=== PATIENT | male | born 2000 | race Caucasian/White ===

== ENCOUNTER 2023-05-10 18:42 | Inpatient (IN) | payer OTHER, SELFPAY ==
[2023-05-10] VITALS (16 sets, daily range): BP systolic 142–159; BP diastolic 87–100; BMI 28.5
[2023-05-10 16:08] LABS: % Basophils 0.4 % (0-2); % Eosinophils 0.4 % (0-6); % Immature Granulocytes 0.7 % (0-0.5); % Lymphocytes 12.7 % (20.5-51.1); % Monocytes 4.8 % (1.7-9.3); Absolute Basophils 0.1 10^3/uL (0-0.2); Absolute Eosinophils 0.1 10^3/uL (0-0.7); Absolute Immature Granulocytes 0.1 10^3/uL (0-0.05); Absolute Lymphocytes 1.8 10^3/uL (1.2-3.4); Absolute Monocytes 0.7 10^3/uL (0.1-0.6); Absolute Neutrophils 11.2 10^3/uL (1.4-6.5); Hematocrit 25.7 % (39.0-52.0); Mean Corpuscular Hgb 29.2 pg (27.0-31.0); Mean Corpuscular Volume 83.4 fL (80.0-94.0); Mean Platelet Volume 10.3 fL (7.4-10.4); Nucleated Red Blood Cells % 0 % (-); Platelet Count 324 10^3/uL (130-400); Red Blood Cell Count 3.08 10^6/uL (4.70-6.10); Red Cell Dist. Width 12.7 % (11.5-14.5); White Blood Cell Count 13.8 10^3/uL (4.8-10.8)
[2023-05-10 16:24] LABS: ALT (SGPT) 51 U/L (0-50); AST (SGOT) 27 U/L (17-59); Albumin 3.8 g/dl (3.5-5.0); Alkaline Phosphatase 70 U/L (38-126); Blood Urea Nitrogen 28 mg/dl (9-20); Carbon Dioxide 28 mmol/L (22-30); Chloride 103 mmol/L (98-107); Estimated Creatinine Clearance > 125 ml/min; Glucose 126 mg/dl (70-99); Sodium 137 mmol/L (135-145); Total Bilirubin 0.3 mg/dl (0.2-1.3); Total Protein 6.5 g/dl (6.3-8.2); eGFR > 60.00
[2023-05-10] MEDS: PROTONIX IV 80 MG IV (17:03)
[2023-05-10] MEDS: PROTONIX 100 IV (17:04)
--- NOTE | 2023-05-10 17:59 | ED.GENMED ---
History of Present Illness
General
Chief Complaint: Fainting/Passed Out
Source: patient and family (Mother and father)
Time Seen by Provider: 05/10/23 16:44
Travel History
Have you had any contact with someone who has COVID-19?: No
Do you have any symptoms of coronavirus? Fever > 100 degrees, chills, cough, shortness of breath, sore throat, loss of taste or smell, muscle aches, or headache?: No
History of Present Illness
History of Present Illness:
22-year-old male presents to the emergency room after suffering a syncopal episode at work. Patient's been feeling dizzy and noted his heart rate has been fast for the past couple days. He has also been experiencing significant low back pain for
the past several weeks. He does endorse using NSAIDs frequently for this pain. He has been evaluated orthopedics and has had an MRI performed but he does not have the results. Back pain is worse with movement. He denies any numbness or tingling
in his lower extremities. Patient has observed black stools recently. He describes as black diarrhea. Patient does not have upper abdominal pain. He denies alcohol use.
Phy Exam
Physical Exam
Physical Exam:
General: Awake, Alert, Oriented X3. Appears ill, pale
Vitals: Tachycardic
Head: Atraumatic
Eyes: Pupils equal, EOMI
Throat: Airway intact, no exudates
Neck: Trachea midline
Lungs: Clear and equal b/l
Heart: Regular rate, no murmurs
Abd: Soft, Nontender, No pulsatile mass
Rectal: Black stool heme positive
Neuro: Nonfocal
Skin: Warm, dry, no rash
Extremities: pulses equal b/l, no edema
Course
Orders/Labs/Results
Orders:
Orders
05/10/23 15:52
Electrocardiogram (*1) Urgent
Reason for Study: Chest Pain
Cardiac Monitoring- Treatment ONCE
EKG- Treatment ONCE
IV Insert/Care/Rem.- Treatment PRN
O2 Therapy [RESP] Urgent
Titrate/Wean O2 to maintain O2 sat greater than (%): 90
Special Instructions: Maintain sats >/=90%
Pulse Ox/spot Check [RESP] Urgent
Quantity: 1
Special Instructions: ON ROOM AIR
05/10/23 15:56
Complete Blood Count/With Diff Urgent
Comprehensive Metabolic Panel Urgent
05/10/23 16:55
IV Insert/Care/Rem.- Treatment PRN
Pantoprazole 80 mg/100 ml Nss [Protonix] 80 mg in 100 ml IV NOW
Pantoprazole [Protonix IV] 80 mg IV NOW STA
05/10/23 17:21
Type+Screen Urgent
05/10/23 18:20
Admit/Transfer Patient As Directed
Co-Sign Provider:
Level of Care: Inpatient admission
Assign to:: ICU
Physician / Group: sanchez ramos
Diagnosis: Symptomatic anemia, GI bleed, tachycardia
Reason for Hospitalization: Symptomatic anemia, GI bleed, tachycardia
Expected length of stay greater than two midnights?: Yes
ELOS- Estimated Length of Stay in days: 3
I certify the patient meets the requirements for IP care: Yes
Code Status As Directed
Resuscitation Status: Full Code
05/10/23 18:21
Hemoglobin Urgent
05/10/23 18:26
GASTROINTESTINAL CONSULT Routine
Consulting Provider: Veronica Elias
Was physician already notified: Yes
Reason for consult: gi bleed
05/10/23 18:39
Moving Worker Consult Routine
Consulting Provider: Facundo Jacinto
Was physician already notified: Yes
05/10/23 18:48
0.9% Sodium Chloride 1000 ml [Nss] 1,000 ml IV 150 mls/hr
05/13/23 11:00
DC Protocol for Telemetry ONCE
Abnormal Lab Results
05/10/23 05/10/23
15:56 18:21
WBC 13.8 H 10^3/uL
(4.8-10.8)
RBC 3.08 L 10^6/uL
(4.70-6.10)
Hgb 9.0 L g/dL 8.7 L g/dL
(13.0-18.0) (13.0-18.0)
Hct 25.7 L %
(39.0-52.0)
Abs Immat Gran (auto) 0.1 H 10^3/uL
(0-0.05)
Absolute Neuts (auto) 11.2 H 10^3/uL
(1.4-6.5)
Absolute Monos (auto) 0.7 H 10^3/uL
(0.1-0.6)
Immature Gran % 0.7 H %
(0-0.5)
Neutrophils % 81.0 H %
(42.2-75.2)
Lymphocytes % 12.7 L %
(20.5-51.1)
BUN 28 H mg/dl
(9-20)
Glucose 126 H mg/dl
(70-99)
ALT 51 H U/L
(0-50)
05/10/23 18:21
05/10/23 15:56
Vital Signs
Initial and Last Documented VS:
Initial Vital Signs
BP
148/94
05/10/23 15:43
Last Documented Vital Signs
Temp Pulse Resp BP Pulse Ox
98.4 F 122 15 150/89 98
05/10/23 15:54 05/10/23 19:15 05/10/23 19:15 05/10/23 19:00 05/10/23 19:15
MDM/Problems Addressed
Differential Diagnosis Includes:
vasovagal syncope, upper gi bleed, lower gi bleed, dehydration
MDM/Problems Addressed:
Patient presents with syncope. He is noted to look quite pale initial evaluation. He is tachycardic but normotensive. He has heme positive black stool. Labs show the patient is anemic with a hemoglobin of 9.0. Consent for blood transfusion
obtained. GI consultation obtained, Dr. Elias came immediately to the emergency room to evaluate the patient. [facility]. Patient likely suffering from a upper GI bleed secondary to NSAID use.
*Pulse Oximetry
Patient hypoxic: no
*Engineering Aid Interpretation
Rate: tachycardiac
Interpretation: abnormal
Heart Rate: 110
Rhythm: sinus tachycardia
*Critical Care Note
Total Time (30-74mins, 75-104mins- exclusive of procedures): 35 min
comment:
Critical care statement: A total of 40 minutes of critical care time was provided for this patient. This includes management of unstable vital signs, evaluation of the patient at bedside, reviewing the patient's pertinent medical records, discussion
with consultants, review of old EKGs and review of pertinent medical records. This time with separate from time utilized to perform the aforementioned documented procedures
ED Attending Note
-
Portions of this chart may have been created with voice recognition software.� Occasional wrong word or��sound alike� substitutions may have occurred due to the inherent limitations of voice recognition software.
Discharge Plan
Departure
Patient Disposition: Admit
Date of Disposition: 05/10/23
Time of Disposition: 18:00
Admit to: ICU
Presentation/result/management discussed w/ accepting MD/DO: Hospitalist
Condition: Serious
Discharge Problem:
Acute upper GI bleed, Syncope
Interventions
Interventions:
*Risk Screen - Suicide Last Done: 05/10/23 16:10
*General Assessment Last Done: 05/10/23 16:09
*Neglect/Abuse Screening Last Done: 05/10/23 16:10
ED- Fall Risk Assessment Last Done: 05/10/23 16:11
*ED COVID-19 Vaccine History Last Done: 05/10/23 16:09
ED- Cardiac Assessment Last Done: 05/10/23 16:11
ED- Neurological Assessment Last Done: 05/10/23 16:11
[2023-05-10 18:30] LABS: Hemoglobin 8.7 g/dL (13.0-18.0)
--- NOTE | 2023-05-10 18:31 | HPS.HSE ---
Addendum entered and electronically signed by Kiet Guevara MD 05/10/23 18:46:
I saw and examined the patient.
The DIALYSIS RN's note was reviewed and I agree with the note.
Comment:
22-year-old male past medical history of chronic back pain who has been taking increasing amount of NSAIDs at home. Patient stating of no nausea vomiting. States of black diarrhea. States he is feeling severe lightheaded and dizzy upon standing
up. Denies any blood in the urine. Denies abdominal pain. Patient denies any chest pain or palpitation or shortness of breath. Patient presented with syncopal event. Patient presented by EMS.
General no acute distress, pale,
Cardiac S1-S2 regular rate rhythm tachycardic sinus
Lungs clear to auscultation
Abdomen positive also soft nontender nondistended
Extremities no edema
Neuro awake alert and oriented, moving all extremities
Impression
Syncope secondary to upper GI bleed
Acute blood loss anemia likely secondary upper GI bleed
Sinus tachycardia secondary to above
Mood disorder
Chronic back pain
Impaired glucose tolerance
Mild AST elevation
Leukocytosis likely reactive
Plan
N.p.o.
Start PPI bolus with IV infusion
Start patient on normal saline 150 cc/h
Gastroenterology has been consulted
Patient will be undergoing emergent endoscopy
Admit to ICU
Radio Host consulted
Repeat H&H later today for transfuse for hemoglobin less than 8
Check anemia panel
Post procedure diet per GI
Hold home medication regimen for now
If hypotensive start pressors
2 IV lines at all times
Trend CBC for now.
Discussed with mother at bedside
Discussed with ER team
I spent a total of 78 minutes with the patient or on the floor. More than 50% of this time involved counseling and coordination of care.
Original Note:
Family Physician
-
Family Physician: Vielka Marin
Chief Complaint
-
Black stools x 2 days
History of Present Illness
22-year-old male from home with his mother Kellie at bedside , the patient states he has been taking approximately ten 200 mg of Motrin daily for the past couple months he also took Excedrin 1 tablet yesterday for headache and additional 1 tablet
Excedrin today for headache. He reports black diarrhea x 2 days with lightheadedness upon standing and nausea. he reports he has been taking Motrin due to back pain for several months with no reported injury he did had outpatient MRI but does not
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 He denies current headache, chest pain, palpitations, shortness breath, abdominal pain, vomiting, urinary symptoms. He has past medical history of depression.
Medical History
Past Medical History
Past Medical History: Reports Other (Chronic back pain, depression)
Past Surgical History: Reports Other ([place] teeth extraction under anesthesia)
Social History
Tobacco: Non-smoker
Alcohol: None
Drug: None
Personal: Single
Living: With Family (Parent)
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
Family History
Family History: Other (Father age 57 NM mother history hypertension)
Allergies / Home Medications
Allergies reflects when Allergies were last updated in [facility].
Home Medications with original date entered in [facility]
Allergy/Medication List:
Allergies
Allergy/AdvReac Type Severity Reaction Status Date / Time
No Known Allergies Allergy Unverified 05/10/23 15:50
Home Medications
acetylcysteine 600 mg capsule (NAC) 600 mg PO QPM 05/10/23
aspirin-acetaminophen (buffered) 250 mg-250 mg tablet 1 tab PO BIDPRN PRN mild pain 05/10/23
cholecalciferol (vitamin D3) 50 mcg (2,000 unit) tablet (Vitamin D3) 1,000 mcg PO QPM 05/10/23
cyclobenzaprine 5 mg tablet 5 mg PO BIDPRN PRN back spasms 05/10/23
escitalopram oxalate 10 mg tablet (Lexapro) 10 mg PO DAILY 05/10/23
therapeutic multivitamin 1 tab PO QPM 05/10/23
Review of Systems
-
History Source: Patient and Family (Mother Kellie at bedside)
A 12 point ROS was completed and negative except as noted: Yes
Constitutional: Reports Fatigue; Denies Fever or Chills
EENT: Denies Sore Throat or Runny Nose
Respiratory: Denies Cough or Trouble Breathing
Cardiac: Denies Chest Pain, Diaphoresis, Palpitations or Syncope
Abdomen/GI: Reports Nausea and Black Stools; Denies Abdominal Pain, Vomiting, Diarrhea, Constipated or Bloody Stools
: Denies Dysuria, Frequency, Flank Pain, Incontinence, Difficulty Voiding, Urgency or Bleeding
Musculoskeletal: Denies Joint Pain or Edema
Skin: Denies Itching or Rash
Neurological: Reports Dizzy (With standing) and Headache; Denies Weakness
Endocrine: Reports No Symptoms
Hematologic/Lymphatic: Reports No Symptoms
Psych: Reports Calm
Physical Exam
Vital Signs
Vital Signs
Temp Pulse Resp BP Pulse Ox
98.4 F 126 12 154/94 99
05/10/23 15:54 05/10/23 17:00 05/10/23 17:00 05/10/23 17:00 05/10/23 17:00
Physical Exam
General: Conversant; No Pain or Fever
HEENT: NormoCephalic, Anicteric, Moist mucous membranes, No Ptosis and Other (Pale conjunctiva)
Respiratory: Clear; No Wheezes, Rales or Rhonchi
Cardiac: S1/S2 and Tachycardia (Sinus heart rate 130s on monitor); No Murmur, Rub, Gallop or Peripheral Edema
Breast: Deferred by me
GI: Soft, Non Tender, Non Distended, Normal Bowel Sounds and No Hepatosplenomegaly
Rectal: Deferred by Provider
Genito-urinary: Deferred by me
Musculoskeletal: No Clubbing, No Cyanosis and No Edema
Skin: Warm and Dry; No Rash or Jaundice
Neuro: No Motor Deficits, Nonfocal/grossly intact, Cranial Nerves Intact and No Sensory Deficits; No Slurred Speech, Facial Droop or Tremors
Psych: Calm
Laboratory Results
-
05/10/23 18:21
Laboratory Results
Total Bilirubin 0.3 mg/dl (0.2-1.3) 05/10/23 15:56
AST 27 U/L (17-59) 05/10/23 15:56
ALT 51 U/L (0-50) H 05/10/23 15:56
Alkaline Phosphatase 70 U/L (38-126) 05/10/23 15:56
Data Reviewed
-
Lab Data: Labs Reviewed by me
Impression/Plan
-
Impression/plan:
Admit to ICU
#Acute GI bleed/symptomatic
HR 130s, Hgb 9, 154/94
-Type and screen
-NPO patient for OR this evening for endoscopy
-IV PPI drip
-IV NSS 150 cc/h
-Check hemoglobin at 2200 if less than 8 will transfuse 1 unit PRBC
#Depression
-Hold current Lexapro as patient is n.p.o.
#Chronic back pain
-Patient to follow-up outpatient for MRI results
DVT prophylaxis
SCDs
Full code
--- NOTE | 2023-05-10 18:33 | CON.GI ---
Consultation
-
Date/Time Consultation Requested: 05/10/23 at 5:30 pm
Date/Time Consultation Performed: 05/10/23 sy 6pm
Requesting Provider: [facility]
Performing Provider: Curt
Reason for Consultation: GI bleed
Medical History
Chief Complaint / HPI
Chief Complaint: syncope
History of Present Illness:
This patient is a 22-year-old man who has a history of severe back pain. He states that over the last several months he has been taking frequent NSAIDs. He also has anxiety and was taking Lexapro. States that he had seen an orthopedic surgeon and
had had an MRI but does not have the results. He did note that while at work he started feeling dizzy and had syncope. He has noted black stool since then. He did come to the ER and was tachycardic. He does not have abdominal pain and he does
not have nausea or vomiting. He does not have a history of ulcers or any GI disorders.
Past Medical History
Past Medical History: Other (anxiety, back pain)
Past Surgical History: None
Social History
Tobacco: Non-Smoker
Alcohol: None
Family History
Family History: Reviewed & Not Pertinent
Allergies / Home Medications
Allergy/AdvReac Type Severity Reaction Status Date / Time
No Known Allergies Allergy Unverified 05/10/23 15:50
Medication Instructions Recorded
acetylcysteine 600 mg capsule (NAC) 600 mg PO QPM 05/10/23
aspirin-acetaminophen (buffered) 1 tab PO BIDPRN PRN mild pain 05/10/23
250 mg-250 mg tablet
cholecalciferol (vitamin D3) 50 1,000 mcg PO QPM 05/10/23
mcg (2,000 unit) tablet (Vitamin
D3)
cyclobenzaprine 5 mg tablet 5 mg PO BIDPRN PRN back spasms 05/10/23
escitalopram oxalate 10 mg tablet 10 mg PO DAILY 05/10/23
(Lexapro)
therapeutic multivitamin 1 tab PO QPM 05/10/23
Review of Systems
-
All other systems: A 12 pt ROS was Negative except as stated above in HPI
Vital Signs
Temp Pulse Resp BP Pulse Ox
98.4 F 126 12 154/94 99
05/10/23 15:54 05/10/23 17:00 05/10/23 17:00 05/10/23 17:00 05/10/23 17:00
Physical Exam
Exam
General: Other (weak but in no distress)
HEENT: Anicteric
Cardiac: S1/S2
GI: Soft and Non Tender
Skin: Warm
Neuro: Awake
Psych: Calm
Results
WBC 13.8 10^3/uL (4.8-10.8) H 05/10/23 15:56
Hgb 8.7 g/dL (13.0-18.0) L 05/10/23 18:21
Hct 25.7 % (39.0-52.0) L 05/10/23 15:56
MCV 83.4 fL (80.0-94.0) 05/10/23 15:56
Plt Count 324 10^3/uL (130-400) 05/10/23 15:56
Absolute Neuts (auto) 11.2 10^3/uL (1.4-6.5) H 05/10/23 15:56
Sodium 137 mmol/L (135-145) 05/10/23 15:56
Potassium 5.0 mmol/L (3.5-5.1) 05/10/23 15:56
Chloride 103 mmol/L (98-107) 05/10/23 15:56
Carbon Dioxide 28 mmol/L (22-30) 05/10/23 15:56
BUN 28 mg/dl (9-20) H 05/10/23 15:56
Creatinine 0.7 mg/dL (0.7-1.3) 03/01/24 15:56
Calcium 9.0 mg/dl (8.4-10.2) 05/10/23 15:56
Total Bilirubin 0.3 mg/dl (0.2-1.3) 05/10/23 15:56
AST 27 U/L (17-59) 05/10/23 15:56
ALT 51 U/L (0-50) H 05/10/23 15:56
Alkaline Phosphatase 70 U/L (38-126) 05/10/23 15:56
Assessment / Plan
-
This patient is a 22-year-old man with a history of frequent NSAID use due to back pain. He did have syncope of melena and is having an acute upper GI bleed. He is tachycardic and his hemoglobin is currently 9 and he has a reactive leukocytosis.
For now would do the following:
NPO
IV PPI ggt
follow hgb
urgent egd
-
-
Thank you for consultation and allowing me to participate in the patient's care. Please call the infrastructure solutions architect GI physician during the after hours with any questions or concerns.
[2023-05-10] MEDS: NSS 1000 IV (19:08)
[2023-05-10 22:32] LABS: Hematocrit 23.8 % (39.0-52.0); Hemoglobin 8.3 g/dL (13.0-18.0)
[2023-05-10 22:43] LABS: PT 14.2 Sec (11.4-14.6)
[2023-05-10 22:44] LABS: APTT 24.3 Sec (23.4-35.0)
--- NOTE | 2023-05-10 23:30 | PTCARENOTE ---
Pt arrived to ICU room 3371 from PACU at around 2120, transported in bed by DOMESTIC MAID and SHIPYARD SUPERVISOR. Pt is s/p clip x2 and epi injection of duodenal ulcer. ST 110s on monitor, BP has been in 140s-150s, hemodynamically stable at this time. SpO2 98-100% on
2LNC, O2 removed at around 2300 and pt has been 97%. Pt cleaned up from being incontinent of dark black diarrhea (did not look like a recent BM). NS and Protonix drips infusing per order. Repeat H&H done at 2220, HgB 8.3. Physical assessment
completed, see nursing shift assessment flowsheet for full details. Oriented to room and call segal, personal belongings within reach. Admission database completed.
[2023-05-11] VITALS (34 sets, daily range): BP systolic 124–169; BP diastolic 66–101; BMI 27.7
[2023-05-11] MEDS: NSS 1000 IV ×2 (01:48→08:33)
[2023-05-11] MEDS: PROTONIX 100 IV ×3 (02:00→22:42)
[2023-05-11 04:32] LABS: % Basophils 0.2 % (0-2); % Immature Granulocytes 0.6 % (0-0.5); % Lymphocytes 9.6 % (20.5-51.1); % Monocytes 1.1 % (1.7-9.3); % Neutrophils 88.5 % (42.2-75.2); Absolute Immature Granulocytes 0.1 10^3/uL (0-0.05); Absolute Lymphocytes 1.4 10^3/uL (1.2-3.4); Absolute Monocytes 0.2 10^3/uL (0.1-0.6); Absolute Neutrophils 12.8 10^3/uL (1.4-6.5); Hematocrit 23.9 % (39.0-52.0); Hemoglobin 8.1 g/dL (13.0-18.0); Mean Corp Hgb Conc. 33.9 g/dL (33.0-37.0); Mean Corpuscular Hgb 28.5 pg (27.0-31.0); Mean Corpuscular Volume 84.2 fL (80.0-94.0); Mean Platelet Volume 10.5 fL (7.4-10.4); Nucleated Red Blood Cells % 0 % (-); Platelet Count 307 10^3/uL (130-400); Red Blood Cell Count 2.84 10^6/uL (4.70-6.10); Red Cell Dist. Width 12.6 % (11.5-14.5); White Blood Cell Count 14.5 10^3/uL (4.8-10.8)
[2023-05-11] MEDS: TYLENOL 650 MG PO ×2 (04:35→14:32)
[2023-05-11 04:57] LABS: Blood Urea Nitrogen 18 mg/dl (9-20); Carbon Dioxide 24 mmol/L (22-30); Chloride 105 mmol/L (98-107); Estimated Creatinine Clearance > 125 ml/min; Glucose 129 mg/dl (70-99); Potassium 4.3 mmol/L (3.5-5.1); Sodium 135 mmol/L (135-145); eGFR > 60.00
--- NOTE | 2023-05-11 05:08 | PTCARENOTE ---
Assessment unchanged. SR 90s on monitor. BP has been elevated this shift, sometimes up to 160s systolic, discussed with Alexa SEWELL and he does not want to treat unless it is >180 or pt symptomatic. When drawing AM labs, pt c/o slight headache
2/10, BP at that time was 155 systolic. Alexa SEWELL made aware, Tylenol ordered and administered, does not want to treat BP at this time. No BM overnight. No c/o pain or nausea.
--- NOTE | 2023-05-11 07:45 | PTCARENOTE ---
Assumed care of patient. Pt rec'd A&Ox3. Pleasant. Denies any pain. S1 S2 reg w/ ST on monitor. +PP. No edema. On R/A...sats 99%. Lungs clear. Abdomen round...+BS. Voids in urinal. Skin pale in color. Knee hi SCD's on. 20P LAC w/ IVF's
and protonix gtt infusing. 18P RAC capped. VS documented. Call segal within reach. NPO for now. Will continue to monitor closely.
--- NOTE | 2023-05-11 08:12 | CON.INTV ---
Consultation
Consultation Request
Date/Time Consultation Requested: 05/10/2023 - 183
Date/Time Consultation Performed: 05/11/2023 - 801
Requesting Provider: Dr. Guevara
Performing Provider: Dr. Jacinto
Reason for Consultation: GI bleed
Medical History
-
Chief Complaint: Black stools x2 days
History of Present Illness:
22-year-old male with past med history of chronic back pain and depression who presents from work after syncopal episode with loss of consciousness. Unclear if there was any head trauma. When EMS arrived patient's heart rate was 160. IV fluids
were started with normal saline and 500 cc were given which improved heart rate to 110s. In the ER patient was afebrile to 98.4 �F, heart rate 137, patient tachypneic to 34 breaths/min, BP 153/87 and SpO2 98% on room air. Patient endorsed
lightheadedness for the last 2 days. Labs showed BUN of 28, glucose 126, ALT 51, Hb 8.7, platelets 324 and WBC 13.8. Patient endorsed taking Motrin and Excedrin daily for several months. He reports having black stools for the last 2 days with
nausea. Due to concern for GI bleed, PPI was started and gastroenterology was consulted. Emergent endoscopy was performed on the evening of 05/10/2023 showing a cratered, deep, large duodenal ulcer with a visible, pulsating vessel. Area was
injected with epinephrine and 2 hemostatic labs were placed with hemostasis achieved. Patient transferred to the ICU for closer monitoring and critical care services consulted for additional management/recommendations.
When I saw the patient he was in bed, mother and father at bedside. Patient says he feels better. Denies abdominal pain, back pain, fevers or chills. He is tachycardic with heart rate in the 120s, BP 145/81 and saturating 100% on room air. He
has not had a bowel movement since yesterday.
PMHx: Chronic back pain, depression
PSHx: [place] teeth extraction
Past Medical History
Past Medical History: Other (above as per HPI)
Past Surgical History: Other (above as per HPI)
Social History
Tobacco: Non-smoker
Alcohol: None
Drug: None
Personal: Single
Living: With Family
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
Family History
Family History: CAD (Father: at age 57 from [place]) and Hypertension (Mother)
Allergies / Home Medications
Allergies
Allergy/AdvReac Type Severity Reaction Status Date / Time
No Known Allergies Allergy Unverified 05/10/23 15:50
Home Medications
Medication Instructions Recorded Confirmed Last Taken Type
acetylcysteine 600 mg capsule (NAC) 600 mg PO QPM 05/10/23 05/10/23 Unknown History
aspirin-acetaminophen (buffered) 1 tab PO BIDPRN PRN mild pain 05/10/23 05/10/23 05/10/23 History
250 mg-250 mg tablet
cholecalciferol (vitamin D3) 50 1,000 mcg PO QPM 05/10/23 05/10/23 Unknown History
mcg (2,000 unit) tablet (Vitamin
D3)
cyclobenzaprine 5 mg tablet 5 mg PO BIDPRN PRN back spasms 05/10/23 05/10/23 Unknown History
escitalopram oxalate 10 mg tablet 10 mg PO DAILY 05/10/23 05/10/23 05/10/23 History
(Lexapro)
therapeutic multivitamin 1 tab PO QPM 05/10/23 05/10/23 Unknown History
Review of Systems
-
History Source: Patient
All other systems: Negative unless noted (12 point ROS performed and is negative unless mentioned above.)
Vitals / Labs / Diagnostic Testing
Vital Signs
Temp Pulse Resp BP Pulse Ox
98.8 F 99 17 138/67 96
05/11/23 07:40 05/11/23 06:00 05/11/23 06:00 05/11/23 06:00 05/11/23 06:00
Lab Data
05/11/23 09:55
05/11/23 04:18
Laboratory Results
05/10/23
22:20
PT 14.2
INR 1.10
APTT 24.3
Diagnostic Testing:
Physical Exam
-
HEENT: Normocephalic, Anicteric and Moist Mucous Membranes
Cardiovascular: S1/S2, Peripheral Edema (negative) and Other (tachycardic)
Respiratory: Clear, Wheeze (negative), Rales (negative), Rhonchi (negative) and Non-Labored Respirations
GI: Soft, Non Distended and Non Tender
Neurology: AO x 3
Skin: Warm and Dry
General: Comfortable and Chills (negative)
Assessment
-
Assessment: 22-year-old male with past med history of chronic back pain and depression who presents from work after syncopal episode with loss of consciousness. Unclear if there was any head trauma. When EMS arrived patient's heart rate was 160.
IV fluids were started with normal saline and 500 cc were given which improved heart rate to 110s. In the ER patient was afebrile to 98.4 �F, heart rate 137, patient tachypneic to 34 breaths/min, BP 153/87 and SpO2 98% on room air. Patient
endorsed lightheadedness for the last 2 days. Labs showed BUN of 28, glucose 126, ALT 51, Hb 8.7, platelets 324 and WBC 13.8. Patient endorsed taking Motrin and Excedrin daily for several months. He reports having black stools for the last 2 days
with nausea. Due to concern for GI bleed, PPI was started and gastroenterology was consulted. Emergent endoscopy was performed on the evening of 05/10/2023 showing a cratered, deep, large duodenal ulcer with a visible, pulsating vessel. Area was
injected with epinephrine and 2 hemostatic labs were placed with hemostasis achieved. Patient transferred to the ICU for closer monitoring and critical care services consulted for additional management/recommendations.
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
Impression:
#Acute blood loss anemia due to upper GI bleed
#Duodenal ulcer with visible vessel s/p injection with epinephrine + clips x2 (EGD on 05/10/2023)
#Symptomatic anemia with syncopal episode due to above
#Tachycardia due to above
#Chronic back pain - he had an MRI L/T spine done at [facility], but has not been reviewed yet by his Orthopedic physician
Plan:
- Large-bore IV X2
- Gastroenterology on board, recs appreciated; s/p EGD on 05/10/2023 with hemostasis achieved of duodenal ulcer s/p epinephrine injection and clipping X2
- Monitor Hb with serial CBC and transfuse if actively bleeding or if Hb<7 g/dL; also keep plt>50k and INR<1.8
- 2 units are being ordered due to continued tachycardia --> if HR improves with rate <110 after first unit, then I would not give the 2nd unit as it is not necessary unless Hb not at goal as above or he is bleeding
- PPI gtt
- Maintain MAP>65
- Maintain SpO2 >90-94%
- Replete K>3.5, Mg>1.8
- DVT ppx
Critical care statement: A total of 40 minutes of critical care time was provided for this patient today. This includes management of unstable vital signs, evaluation of the patient at bedside, reviewing the patient's pertinent medical records
including radiographs, microbiology, laboratory evaluations, and discussion with primary team, consultants, pharmacy, nutrition, physical therapy, case management, charge nurse, critical care nursing, and respiratory therapy.
Data:
CXR 05-10-2023:
Thin linear densities within the left lower lung, compatible with scarring and/or linear atelectasis.
[2023-05-11 08:59] LABS: Iron 153 ug/dl (49-181)
[2023-05-11 09:08] LABS: Percent Saturation 37 % (20-50); Total Iron Binding Capacity 405 ug/dl (261-462)
[2023-05-11 10:09] LABS: Hematocrit 21.7 % (39.0-52.0); Hemoglobin 7.6 g/dL (13.0-18.0)
--- NOTE | 2023-05-11 10:27 | W.PN.GI.CBS2 ---
Today's Communication / Plan
-
transfuse 2 units prbcs
Assessment / Plan
-
22 y/o man with massive UGIB from DU with visible vessel. No more bleeding but never received any blood despite major hgb drop and symptomatic headaches and tachycardia.
1. transfuse 2u pRBCs
2. continue IV PPI ggt
3. continue NPO and if remains stable clear liquids for dinner
4. avoid nsaids
5. follow hgb
Subjective
Subjective
Date of Service: May 11, 2023
Pt s/p UGIB with large artery bleed from DU. He has not had any more bleeding but has been tachy with headaches. Of note he never received blood.
Objective
Data Reviewed
Laboratory Data:
Laboratory Results
05/11/23 09:55
05/11/23 04:18
Laboratory Results
PT 14.2 Sec (11.4-14.6) 05/10/23 22:20
INR 1.10 05/10/23 22:20
APTT 24.3 Sec (23.4-35.0) 05/10/23 22:20
Total Bilirubin 0.3 mg/dl (0.2-1.3) 05/10/23 15:56
AST 27 U/L (17-59) 05/10/23 15:56
ALT 51 U/L (0-50) H 05/10/23 15:56
Alkaline Phosphatase 70 U/L (38-126) 05/10/23 15:56
Vital Signs and I&O:
Vital Signs
Temp Pulse Resp BP Pulse Ox
98.8 F 99 17 138/67 96
05/11/23 07:40 05/11/23 06:00 05/11/23 06:00 05/11/23 06:00 05/11/23 06:00
I&O
05/10/23 05/11/23 05/12/23
06:59 06:59 06:59
Intake Total 1546 / 1546
Output Total 1150 / 1150 600 / 600
Balance 396 / 396 -600 / -600
Physical Exam
Physical Exam
HEENT: Anicteric
Cardiology: Other (tachcardic)
GI: Soft, Non Distended and Non Tender
Neuro: Non Focal
--- NOTE | 2023-05-11 11:40 | W.PN.HOSP.TC ---
Today's Communication/Plan
-
IVF
2U PRBC
Trend h/h post transfusion
IV PPI
Assessment / Plan
Assessment / Plan
#Syncope secondary to upper GI bleed
#Acute blood loss anemia likely secondary upper GI bleed
#Sinus tachycardia secondary to above
Start PPI bolus with IV infusion
Start patient on normal saline 150 cc/h
Gastroenterology has been consulted
s/p Emergent EGD with DU with visible vessel s/p epi injection s/p clips.
Hgb 7.6. 2U PRBC ordered.
Check anemia panel
Diet per GI
Hold home medication regimen for now
If hypotensive start pressors
2 IV lines at all times
Trend CBC for now.
Poll Clerk consulted
Mood disorder
restart lexapro once diet restarted
Chronic back pain
Tylenol prn
No NSAIDs
Impaired glucose tolerance
Check A1C
Mild AST elevation
monitor
Leukocytosis likely reactive
trend for now
afebrile
no cough or fever.
DVT ppx-ambulate
Anticipated Discharge: > 48 hours
Subjective/Interval History
-
Date of Service: May 11, 2023
Denies abdominal or lightheadedness \\
Denies any diarrhea.
States a mild headache
Currently without back pain
Denies any numbing tingling in upper or lower extremities
Denies urinary or fecal incontinence
Objective Data
-
Labs:
Laboratory Results
05/11/23 05/11/23 05/11/23
04:18 04:18 04:18
WBC 14.5 H
Hgb Cancelled 8.1 L
Hct Cancelled 23.9 L
Plt Count 307
Sodium 135
Potassium 4.3
Chloride 105
Carbon Dioxide 24
BUN 18
Creatinine 0.6 L
Glucose 129 H
Calcium 9.0
05/11/23
09:55
WBC
Hgb 7.6 L
Hct 21.7 L
Plt Count
Sodium
Potassium
Chloride
Carbon Dioxide
BUN
Creatinine
Glucose
Calcium
Vital Signs:
Vital Signs
Temp Pulse Resp BP Pulse Ox
98.8 F 99 17 138/67 96
05/11/23 07:40 05/11/23 06:00 05/11/23 06:00 05/11/23 06:00 05/11/23 06:00
I&O
05/10/23 05/11/23 05/12/23
06:59 06:59 06:59
Intake Total 1546 / 1546
Output Total 1150 / 1150 600 / 600
Balance 396 / 396 -600 / -600
Physical Exam
-
General: Well Developed, No Apparent Distress and Other (pale)
HEENT: Normocephalic, Atraumatic and Moist Mucous Membranes
Respiratory: Clear to Auscultation
Cardiac: Regular Rhythm and S1/S2; Negative Murmur, Rub or Gallop
GI: Soft, Nontender, Nondistended and Normal Bowel Sounds; Negative Organomegaly
Rectal: Deferred by Provider
Musculoskeletal: No Clubbing, No Cyanosis and No Edema
Skin: Negative Rash
Neuro: Nonfocal/Grossly Intact
Psych: Calm
Data Reviewed
-
Total Time Spent with Patient (in minutes): 55
--- NOTE | 2023-05-11 12:15 | PTCARENOTE ---
1st unit of PRBC's hung...hgb was 7.6 prior to transfusion. 2 units PRBC's ordered in total. No major changes in physical assessment. Call segal within reach. Will continue to monitor.
[2023-05-11 13:16] LABS: Ferritin 42.2 ng/ml (17.9-464.0)
[2023-05-11 13:48] LABS: Folate > 20.0 ng/ml (2.76-20); Vitamin B12 357 pg/ml (239-931)
--- NOTE | 2023-05-11 16:00 | PTCARENOTE ---
2nd unit infusing....no issue w/ transfusions. Pt resting comfortably w/o complaints...prn tylenol given for headache. No major changes in physical assessment...call segal within reach. Will continue to monitor.
[2023-05-11] MEDS: NSS IV (17:45)
[2023-05-11 19:55] LABS: Hematocrit 26.9 % (39.0-52.0)
--- NOTE | 2023-05-11 20:00 | PTCARENOTE ---
Patient received in bed, AAOX3, pleasant, offers no complaints. NSR on monitor, afebrile, blood pressure as documented. palpable pulses throughout, no edema noted. Knee high SCDs maintained. Lungs clear, pulse ox 100% on room air. Abdomen round
soft with hypoactive bowel sounds. Denies nausea. Ate 50% of dinner. Voiding without difficulty. #20 g in left forearm with protonix gtt infusing as ordered. #18 g in RAC flushed and patent. family at bedside, plan of care discussed,call segal
within reach
[2023-05-11 20:03] LABS: Hemoglobin 9.8 g/dL (13.0-18.0)
[2023-05-12] VITALS (20 sets, daily range): BP systolic 122–166; BP diastolic 61–99; PULSE 98–99; O2SAT 93–100; BMI 28.3
--- NOTE | 2023-05-12 00:13 | PTCARENOTE ---
patient offers no complaints, heart rate 90s-low 100s, no changes in assessment
[2023-05-12] MEDS: TYLENOL 650 MG PO ×2 (01:59→21:53)
--- NOTE | 2023-05-12 04:00 | PTCARENOTE ---
Patient medicated with tylenol for generalized pain, no other changes in assessment
[2023-05-12 05:55] LABS: % Basophils 0.3 % (0-2); % Eosinophils 0.3 % (0-6); % Immature Granulocytes 0.7 % (0-0.5); % Monocytes 9.6 % (1.7-9.3); % Neutrophils 60.1 % (42.2-75.2); Absolute Basophils 0.1 10^3/uL (0-0.2); Absolute Eosinophils 0.1 10^3/uL (0-0.7); Absolute Immature Granulocytes 0.1 10^3/uL (0-0.05); Absolute Lymphocytes 4.4 10^3/uL (1.2-3.4); Absolute Monocytes 1.4 10^3/uL (0.1-0.6); Absolute Neutrophils 9.1 10^3/uL (1.4-6.5); Hematocrit 27.1 % (39.0-52.0); Hemoglobin 9.5 g/dL (13.0-18.0); Mean Corp Hgb Conc. 35.1 g/dL (33.0-37.0); Mean Corpuscular Volume 82.6 fL (80.0-94.0); Mean Platelet Volume 10.2 fL (7.4-10.4); Nucleated Red Blood Cells % 0 % (-); Platelet Count 325 10^3/uL (130-400); Red Blood Cell Count 3.28 10^6/uL (4.70-6.10); Red Cell Dist. Width 13.4 % (11.5-14.5); White Blood Cell Count 15.1 10^3/uL (4.8-10.8)
[2023-05-12 06:27] LABS: ALT (SGPT) 45 U/L (0-50); AST (SGOT) 29 U/L (17-59); Albumin 4.3 g/dl (3.5-5.0); Alkaline Phosphatase 72 U/L (38-126); Blood Urea Nitrogen 17 mg/dl (9-20); Calcium 9.4 mg/dl (8.4-10.2); Carbon Dioxide 27 mmol/L (22-30); Chloride 104 mmol/L (98-107); Estimated Creatinine Clearance > 125 ml/min; Glucose 93 mg/dl (70-99); Sodium 135 mmol/L (135-145); Total Bilirubin 0.7 mg/dl (0.2-1.3); Total Protein 6.7 g/dl (6.3-8.2); eGFR > 60.00
--- NOTE | 2023-05-12 07:45 | PTCARENOTE ---
Assumed care of patient. Pt rec'd A&OX3. Pleasant. C/o feeling achy but overall good. S1 S2 reg w/ NSR on monitor. +PP. On R/A...99% sat. Encouraged coughing and deep breathing. Lungs clear but diminished. Abdomen round...hypo BS. Voids in
urinal. Skin WNL. 18P RAC capped. 20P LAC w/ protonix gtt infusing. VS documented. Call segal within reach. Spoke to ....plan to keep NPO for now for possible CXR/CT scan this am. Pt updated and agreeable to plan of care. Will
continue to monitor.
--- NOTE | 2023-05-12 08:08 | W.PN.GI.CBS2 ---
Today's Communication / Plan
-
work up for increased wbc/tachycardia
Assessment / Plan
-
22 y/o man with massive UGIB from DU with visible vessel. He is Stable past transfusion. He does however continue to have tachycardia and an increasing white blood count despite treatment of his ulcer and an appropriate hemoglobin elevation. For
now would do the following
1. check chest xray
2. check UA he has some dysuria
3. check CT abd/pelvis
4. can eat regular diet after CT scan
5. continue PPI ggt
6. Tentative repeat EGD tomorrow to assess DU
Subjective
Subjective
Date of Service: May 12, 2023
This patient is a 22-year-old man with a history of chronic back pain and an acute upper GI bleed with a duodenal ulcer found with a visible vessel. He is status post 2 units packed red blood cells and he does go better. He does have generalized
abdominal and back pain which is mild and not limiting.
Objective
Data Reviewed
Laboratory Data:
Laboratory Results
05/12/23 05:23
05/12/23 05:23
Laboratory Results
PT 14.2 Sec (11.4-14.6) 05/10/23 22:20
INR 1.10 05/10/23 22:20
APTT 24.3 Sec (23.4-35.0) 05/10/23 22:20
Total Bilirubin 0.7 mg/dl (0.2-1.3) 05/12/23 05:23
AST 29 U/L (17-59) 05/12/23 05:23
ALT 45 U/L (0-50) 05/12/23 05:23
Alkaline Phosphatase 72 U/L (38-126) 05/12/23 05:23
Vital Signs and I&O:
Vital Signs
Temp Pulse Resp BP Pulse Ox
98.2 F 83 16 122/69 97
05/12/23 07:30 05/12/23 06:00 05/12/23 05:00 05/12/23 06:00 05/12/23 06:00
I&O
05/11/23 05/12/23 05/13/23
06:59 06:59 06:59
Intake Total 1546 / 1546 2059
Output Total 1150 / 1150 2500 / 2500 300 / 300
Balance 396 / 396 -440 / -440 -300 / -300
Physical Exam
Physical Exam
HEENT: Anicteric
Cardiology: S1, S2 (tachycardic) and Other (tachycardic up to the 115 with movement)
Pulmonary: Clear (decreased breath sounds)
GI: Soft, Non Tender, Normal Bowel Sounds and Other
Neuro: Non Focal
--- NOTE | 2023-05-12 08:43 | W.PN.INTV ---
Today's Communication / Plan
Recommendations
Continue to trend Hb
Hb stable thus far today, and can check Again in the morning
Continue IV fluids
NPO past midnight for repeat EGD for relook
Outpatient follow-up with orthopedics to further investigate into his lower back pain
Strict avoidance of NSAIDs, if possible
Patient stable for downgrade out of ICU to telemetry. I rechecked Hb this afternoon and it remained stable, he is no longer tachycardic, he remains hemodynamically stable, and he is tolerating regular PO diet without any postprandial complaints.
Artificial Leather Calender Operator/pulmonary service will sign off. Please reconsult if there are any additional questions/concerns, or if respiratory status deteriorates.
Assessment
-
Assessment: 22-year-old male with past med history of chronic back pain and depression who presents from work after syncopal episode with loss of consciousness. Unclear if there was any head trauma. When EMS arrived patient's heart rate was 160.
IV fluids were started with normal saline and 500 cc were given which improved heart rate to 110s. In the ER patient was afebrile to 98.4 �F, heart rate 137, patient tachypneic to 34 breaths/min, BP 153/87 and SpO2 98% on room air. Patient
endorsed lightheadedness for the last 2 days. Labs showed BUN of 28, glucose 126, ALT 51, Hb 8.7, platelets 324 and WBC 13.8. Patient endorsed taking Motrin and Excedrin daily for several months. He reports having black stools for the last 2 days
with nausea. Due to concern for GI bleed, PPI was started and gastroenterology was consulted. Emergent endoscopy was performed on the evening of 05/10/2023 showing a cratered, deep, large duodenal ulcer with a visible, pulsating vessel. Area was
injected with epinephrine and 2 hemostatic labs were placed with hemostasis achieved. Patient transferred to the ICU for closer monitoring and critical care services consulted for additional management/recommendations.
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
Impression:
#Acute blood loss anemia due to upper GI bleed
#Duodenal ulcer with visible vessel s/p injection with epinephrine + clips x2 (EGD on 05/10/2023)
#Symptomatic anemia with syncopal episode due to above
#Tachycardia due to above - tachycardia now resolved s/p 2 units PRBC on 05/11/2023
#Chronic back pain - he had an MRI L/T spine done at [facility], but has not been reviewed yet by his Orthopedic physician
Plan:
- Large-bore IV X2
- Continue IVF with NS @ 70cc/hr; would stop after today to avoid volume overload
- Gastroenterology on board, recs appreciated; s/p EGD on 05/10/2023 with hemostasis achieved of duodenal ulcer s/p epinephrine injection and clipping X2
- Monitor Hb with serial CBC and transfuse if actively bleeding or if Hb<7 g/dL; also keep plt>50k and INR<1.8
- 2 units were administered on 05/10 due to continued tachycardia --> this improved his HR from 110s-120s to 80s
- Continue PPI gtt
- NPO past midnight as GI will take re-look via EGD to assess stability of his duodenal ulcer
- Avoid NSAIDs going forward
- Outpatient follow up with Orthopedics at [facility] to investigate into what is causing his back pain --> he had an outpatient MRI T/L spine done already, and he has to still meet with the surgeons for next steps
- Maintain MAP>65
- Maintain SpO2 >90-94%
- Replete K>3.5, Mg>1.8
- DVT ppx
Dispo: Patient stable for downgrade out of ICU to telemetry. I rechecked Hb this afternoon and it remained stable, he is no longer tachycardic, he remains hemodynamically stable, and he is tolerating regular PO diet without any postprandial
complaints. Artificial Leather Calender Operator/pulmonary service will sign off. Thank you for allowing me to be involved in the care of this patient. Please reconsult if there are any additional questions/concerns, or if respiratory status deteriorates.
Data:
CXR 05-12-2023: No acute cardiopulmonary process.
CXR 05-10-2023:
Thin linear densities within the left lower lung, compatible with scarring and/or linear atelectasis.
CT Abd/Pelvis 05-12-2023:
Clips in the duodenal bulb related to treatment for a duodenal ulcer. Mild wall thickening at the level of the duodenal bulb, but no CT evidence for perforation or abscess formation. No other acute inflammatory process in the abdomen or pelvis.
Subjective Dataa
Subjective Data
Date of Service:
Date of Service: May 12, 2023
Chief Complaint: Artificial Leather Calender Operator Follow Up
Subjective:
Patient seen today at bedside. He is doing well, denies abdominal pain, headache, fevers, chills. Afebrile overnight. Hb 9.5 this morning. Platelet count 325. Patient had CT abdomen/pelvis which showed no acute inflammatory process, with mild
wall thickening at the level of the duodenal bulb with no evidence of perforation or abscess formation. CXR showed no acute cardiopulmonary process. He is eating food without any complaints, denying abdominal pain, nausea or vomiting
postprandially.
Review of Systems
General: Other (Negative unless mentioned above)
Objective Data
Data Reviewed
Vital Signs / I&O / Oxygen:
Vital Signs
Temp Pulse Resp BP Pulse Ox
99 F 94 14 143/93 100
05/12/23 15:14 05/12/23 15:00 05/12/23 15:00 05/12/23 15:00 05/12/23 15:00
Intake and Output
05/11/23 05/12/23 05/13/23
06:59 06:59 06:59
Intake Total 1546 / 1546 0 / 2060 60 / 60
Output Total 1150 / 1150 2500 / 2500 1050 / 1050
Balance 396 / 396 -440 / -440 -990 / -990
SaO2 100
Nasal Cannula flow liters per 2
minute
Physical Exam
General: Comfortable
HEENT: Normocephalic and Anicteric
Cardiovascular: S1-S2 and Peripheral Edema (negative)
Respiratory: Clear, Wheeze (negative), Crackles (negative), Rhonchi (negative) and Non-Labored Respirations
GI: Soft, Non Distended and Non Tender
Neurology: AO x 3
Skin: Warm and Dry
Labs/Micro/Reports
Lab Data
05/12/23 14:11
05/12/23 05:23
[2023-05-12 09:29] LABS: Glycohemoglobin (HgbA1c) 5.5 % (4.0-5.6)
[2023-05-12] MEDS: PROTONIX 100 IV ×2 (09:30→19:28)
[2023-05-12 09:38] LABS: Urine Albumin Negative (Neg - Trace); Urine Bilirubin Negative (Negative); Urine Character Clear (Clear); Urine Color Yellow; Urine Glucose Negative (Negative); Urine Ketone Trace (Negative); Urine Leukocyte Negative (Negative); Urine Nitrite Negative (Negative); Urine Occult Blood Negative (Negative); Urine Specific Gravity 1.015 (<1.030); Urine Urobilinogen Negative (Neg - 1+); Urine pH 6.5 (5.0-9.0)
--- NOTE | 2023-05-12 09:40 | PTCARENOTE ---
CT abdomen completed...UA sent. Awaiting CXR.
--- NOTE | 2023-05-12 12:00 | PTCARENOTE ---
CXR done. Seen by PT/OT...ambulated in hallways. Sitting in chair comfortably at present...call segal within reach. Menu provided to order regular diet for lunch. Remains on R/A...no major changes in physical assessment...protonix gtt infusing.
Will continue to monitor.
--- NOTE | 2023-05-12 13:29 | W.PN.HOSP.TC ---
Today's Communication/Plan
-
Await CBC at 2pm and can then tentative tx out ICU
PPI IV
ICU recs
EGD in am
NPO PMN
Assessment / Plan
Assessment / Plan
#Syncope secondary to upper GI bleed
#Acute blood loss anemia likely secondary upper GI bleed
#Sinus tachycardia secondary to above-almost resolved
Start PPI bolus with IV infusion
Tolerating diet and liquids-hold IVF.
Gastroenterology has been consulted
s/p Emergent EGD with DU with visible vessel s/p epi injection s/p clips.
Hgb 9.5 s/p 2U PRBC
Anemia panel noted
Diet per GI
BP has remained stable.
CT abd/pelvis -Clips in the duodenal bulb related to treatment for a duodenal ulcer. Mild wall thickening at the level of the duodenal bulb, but no CT evidence for perforation or abscess formation. No other acute inflammatory process in the abdomen
or pelvis.
2 IV lines at all times
Trend CBC for now.
Chenille Machine Operator consulted
Plan for tentative repeat EGD in am. NPO PMN
#Leukocytosis likely reactive
trend for now. repeat CBC later today.
afebrile
no cough or fever.
UA negative
CT abd/pelvis noted
CXR negative for infiltrate
#Mood disorder
restart lexapro
#Chronic back pain
Tylenol prn
No NSAIDs
#Mild AST elevation
monitor
DVT ppx-ambulate. Avoid chemical ppx in setting GIB. SCds
Anticipated Discharge: > 48 hours
Subjective/Interval History
-
Date of Service: May 12, 2023
anxious at times
remains afebrile
HR improved
worked with PT earlier
no abd pain or nausea or vomiting
no dysuria
no bm
no abd pain
denies cough
Objective Data
-
Labs:
Laboratory Results
05/12/23 05/12/23
05:23 14:00
WBC 15.1 H Pending
Hgb 9.5 L Pending
Hct 27.1 L Pending
Plt Count 325 Pending
Sodium 135
Potassium 4.0
Chloride 104
Carbon Dioxide 27
BUN 17
Creatinine 0.8
Glucose 93
Calcium 9.4
Total Bilirubin 0.7
AST 29
ALT 45
Alkaline Phosphatase 72
Vital Signs:
Vital Signs
Temp Pulse Resp BP Pulse Ox
98.8 F 88 11 146/77 96
05/12/23 11:16 05/12/23 11:00 05/12/23 11:00 05/12/23 11:00 05/12/23 11:00
I&O
05/11/23 05/12/23 05/13/23
06:59 06:59 06:59
Intake Total 1546 / 1546 2059 / 2059
Output Total 1150 / 1150 2500 / 2500 650 / 650
Balance 396 / 396 -440 / -440 -630 / -630
Physical Exam
-
General: Well Developed, Well Nourished and No Apparent Distress
HEENT: Normocephalic, Atraumatic and Moist Mucous Membranes
Respiratory: Clear to Auscultation
Cardiac: Regular Rhythm and S1/S2; Negative Murmur, Rub or Gallop
GI: Soft, Nontender, Nondistended and Normal Bowel Sounds; Negative Organomegaly
Rectal: Deferred by Provider
Musculoskeletal: No Clubbing, No Cyanosis and No Edema
Skin: Negative Rash
Neuro: Awake, Alert, Oriented, AO x 3, No Motor Deficits and Nonfocal/Grossly Intact
Psych: Calm
[2023-05-12 14:25] LABS: Hemoglobin 9.6 g/dL (13.0-18.0); Mean Corp Hgb Conc. 35.6 g/dL (33.0-37.0); Mean Corpuscular Hgb 29.1 pg (27.0-31.0); Mean Corpuscular Volume 81.8 fL (80.0-94.0); Platelet Count 331 10^3/uL (130-400); Red Cell Dist. Width 13.3 % (11.5-14.5); White Blood Cell Count 12.1 10^3/uL (4.8-10.8)
[2023-05-12] MEDS: THERAGRAN 1 TABLET PO (17:50)
[2023-05-12] MEDS: VITAMIN D3 (cholecalciferol) 25 MCG PO (17:50)
--- NOTE | 2023-05-12 20:00 | PTCARENOTE ---
Patient received in bed, AAOX3, offers no complaints at this time. NSR on monitor, blood pressure as documented. Palpable pulses throughout, no edema noted. Knee high SCDs maintained. Lungs clear, on room air. Abdomen soft with positive bowel
sounds. patient voiding using urinal. #18 g in RAC flushed and patent. #20 g in LAC with Protonix gtt infusing as documented. Call segal within reach, plan of care discussed.
[2023-05-13] VITALS (20 sets, daily range): BP systolic 20–163; BP diastolic 66–98
[2023-05-13] MEDS: NSS 1000 IV ×2 (00:13→16:21)
--- NOTE | 2023-05-13 01:23 | PTCARENOTE ---
patient transferred to telemetry with belongings
--- NOTE | 2023-05-13 01:46 | TRANSFER ---
@0045;Received telephone report from ICU Holli BUSH.@0100;Received pt from ICU,via wheel chair and accompanied by [employer] CHAIR.Pt gait stable as he walked from W/C to bed.Pt denies pain and oriented to unit and procedure for the AM.IV's infusing ; NSS &
Protonic.Pt is pleasant and cooperative.
[2023-05-13 06:09] LABS: % Basophils 0.4 % (0-2); % Eosinophils 1.9 % (0-6); % Immature Granulocytes 0.8 % (0-0.5); % Lymphocytes 33.4 % (20.5-51.1); % Monocytes 7.9 % (1.7-9.3); % Neutrophils 55.6 % (42.2-75.2); Absolute Basophils 0.1 10^3/uL (0-0.2); Absolute Eosinophils 0.2 10^3/uL (0-0.7); Absolute Immature Granulocytes 0.1 10^3/uL (0-0.05); Absolute Monocytes 0.9 10^3/uL (0.1-0.6); Absolute Neutrophils 6.6 10^3/uL (1.4-6.5); Hematocrit 25.5 % (39.0-52.0); Mean Corp Hgb Conc. 35.3 g/dL (33.0-37.0); Mean Corpuscular Hgb 29.4 pg (27.0-31.0); Mean Corpuscular Volume 83.3 fL (80.0-94.0); Mean Platelet Volume 10.1 fL (7.4-10.4); Nucleated Red Blood Cells % 0 % (-); Platelet Count 304 10^3/uL (130-400); Red Blood Cell Count 3.06 10^6/uL (4.70-6.10); Red Cell Dist. Width 13.2 % (11.5-14.5); White Blood Cell Count 11.9 10^3/uL (4.8-10.8)
[2023-05-13 06:35] LABS: Blood Urea Nitrogen 25 mg/dl (9-20); Calcium 9.1 mg/dl (8.4-10.2); Carbon Dioxide 27 mmol/L (22-30); Chloride 103 mmol/L (98-107); Estimated Creatinine Clearance > 125 ml/min; Glucose 92 mg/dl (70-99); Magnesium 2.2 mg/dl (1.6-2.3); Phosphorus 4.7 mg/dl (2.5-4.5); Potassium 3.9 mmol/L (3.5-5.1); Sodium 136 mmol/L (135-145); eGFR > 60.00
[2023-05-13] MEDS: PROTONIX 100 IV ×2 (06:43→20:46)
[2023-05-13] MEDS: LEXAPRO PO (08:03)
--- NOTE | 2023-05-13 08:56 | W.PN.HOSP.TC ---
Today's Communication/Plan
-
Await results of relook EGD
Continue to monitor his H&H
Continues on IV PPI transition timing to GI
Assessment / Plan
Assessment / Plan
#Syncope secondary to upper GI bleed
#Acute blood loss anemia likely secondary upper GI bleed
#Sinus tachycardia secondary to above-almost resolved
Start PPI bolus with IV infusion
Tolerating diet and liquids-hold IVF.
Gastroenterology has been consulted
s/p Emergent EGD with DU with visible vessel s/p epi injection s/p clips.
Hgb 9.5 s/p 2U PRBC >> 9.0
Anemia panel noted
Diet per GI
BP has remained stable.
CT abd/pelvis -Clips in the duodenal bulb related to treatment for a duodenal ulcer. Mild wall thickening at the level of the duodenal bulb, but no CT evidence for perforation or abscess formation. No other acute inflammatory process in the abdomen
or pelvis. For repeat relook EGD today
2 IV lines at all times
Trend CBC for now.
Await results of relook EGD transition to oral PPI/avoidance of NSAIDs going forward/await clearance by GI
#Leukocytosis likely reactive
trend for now. repeat CBC later today.
afebrile
no cough or fever.
UA negative
CT abd/pelvis noted
CXR negative for infiltrate
#Mood disorder
restart lexapro
#Chronic back pain
Tylenol prn
No NSAIDs
#Mild AST elevation
monitor
DVT ppx-ambulate. Avoid chemical ppx in setting GIB. SCds
Anticipated Discharge: 24 - 48 hours
Subjective/Interval History
-
Date of Service: May 13, 2023
No further active bleeding noted no dizziness no lightheadedness no stomach upset or abdominal pain for EGD this morning
Objective Data
-
Labs:
Laboratory Results
05/13/23
05:45
WBC 11.9 H
Hgb 9.0 L
Hct 25.5 L
Plt Count 304
Sodium 136
Potassium 3.9
Chloride 103
Carbon Dioxide 27
BUN 25 H
Creatinine 0.8
Glucose 92
Calcium 9.1
Vital Signs:
Vital Signs
Temp Pulse Resp BP Pulse Ox
97.8 F 88 16 129/79 98
05/13/23 07:00 05/13/23 07:00 05/13/23 07:00 05/13/23 07:00 05/13/23 07:00
I&O
05/12/23 05/13/23 05/14/23
06:59 06:59 06:59
Intake Total 2059 / 2059 580 / 580
Output Total 2500 / 2500 1650 / 1650
Balance -440 / -440 -1070 / -1070
Review of Systems
-
History Source: Patient
Physical Exam
-
General: Well Developed
HEENT: Normocephalic
Respiratory: Clear to Auscultation
Cardiac: Regular Rhythm
Skin: Warm
Neuro: Awake, Alert and Oriented
Psych: Calm
Data Reviewed
-
Total Time Spent with Patient (in minutes): 45
Labs: Labs Reviewed by me (Hemoglobin 9.0)
--- NOTE | 2023-05-13 09:41 | W.PN.UPDATE ---
Update Note
Progress Note Update
EGD with a small flat red spot, treated with gold probe
plan:
keep on PPI ggt 24 hrs
can change to PPI bid po for 8 weeks
will f/u stomach bx to r/o Hpylori
no nsaids
regular diet
transfuse 2 units.
--- NOTE | 2023-05-13 15:35 | CM ---
met with patient and his mother at bedside.patient lives with his mother in [place] with 4 al[address].his bed and bath is on the first level.he amb I is I with his adl's.his pcp is dr morales and he gets his meds from [facility] in [facility]. there
is no dme in home.patient has no hx of vn or ip rehab.
patient is adm with gi bleed and tata mentions patient had been taking n saids for his back pain. He had an egd, total of 4 units pbrc and is on a regular diet.
Patient will have no needs when stable for dc home.
[2023-05-13 16:32] LABS: Glucose - Point of Care 96 mg/dl (70-99)
--- NOTE | 2023-05-13 16:43 | W.PN.UPDATE ---
Addendum entered and electronically signed by Cirilo Colvin MD 05/13/23 16:52:
Had cardiology review rhythm strip and feel that QRS March through tracing consistent with artifact again patient was asymptomatic without BP changes would continue to hold off on any further blood transfusion and await labs. No need for cardiology
consultation
Original Note:
Update Note
Progress Note Update
Rapid response team called after noting heart rate increased and placed on monitor with apparent atrial tachycardia of 225 and was asymptomatic at the time while second unit of blood was running.� Remains asymptomatic with heart rate of 100 stable
blood pressure will get stat labs including magnesium and potassium hold further blood transfusion/no other signs of transfusion reaction will ask cardiology to evaluate rhythm strips and EKG obtained.
[2023-05-13 17:06] LABS: Hematocrit 28.9 % (39.0-52.0); Hemoglobin 10.3 g/dL (13.0-18.0); Mean Corp Hgb Conc. 35.6 g/dL (33.0-37.0); Mean Corpuscular Hgb 29.3 pg (27.0-31.0); Mean Corpuscular Volume 82.3 fL (80.0-94.0); Mean Platelet Volume 9.9 fL (7.4-10.4); Platelet Count 351 10^3/uL (130-400); Red Blood Cell Count 3.51 10^6/uL (4.70-6.10); Red Cell Dist. Width 13.2 % (11.5-14.5); White Blood Cell Count 12.6 10^3/uL (4.8-10.8)
[2023-05-13 17:21] LABS: Blood Urea Nitrogen 20 mg/dl (9-20); Calcium 9.4 mg/dl (8.4-10.2); Carbon Dioxide 28 mmol/L (22-30); Chloride 101 mmol/L (98-107); Estimated Creatinine Clearance > 125 ml/min; Glucose 101 mg/dl (70-99); Potassium 3.8 mmol/L (3.5-5.1); Sodium 138 mmol/L (135-145); eGFR > 60.00
[2023-05-13 17:26] LABS: Magnesium 2.1 mg/dl (1.6-2.3)
[2023-05-13] MEDS: THERAGRAN 1 TABLET PO (17:37)
[2023-05-13] MEDS: VITAMIN D3 (cholecalciferol) 25 MCG PO (17:37)
--- NOTE | 2023-05-13 18:21 | RR ---
A Rapid Response was called on this patient, please see Rapid Response form.
Pt received 1 unit PRBC. Second unit started. 20 minutes post initiation pt hr jumped to 170s-220s on tele monitor. Blood stopped. RR called. Pt AAOx3, asymptomatic.
[2023-05-13 18:39] LABS: Microalbumin, Random Urine 0.7 mg/dl (0.6-1.7)
[2023-05-13 22:05] LABS: 5Hr. Total Bilirubin 0.5 mg/dl (0.2-1.3)
[2023-05-14] VITALS (13 sets, daily range): BP systolic 18–150; BP diastolic 59–91
[2023-05-14] MEDS: NSS 1000 IV (06:05)
[2023-05-14 06:27] LABS: Hematocrit 27.1 % (39.0-52.0); Hemoglobin 9.4 g/dL (13.0-18.0); Mean Corp Hgb Conc. 34.7 g/dL (33.0-37.0); Mean Corpuscular Hgb 29.2 pg (27.0-31.0); Mean Corpuscular Volume 84.2 fL (80.0-94.0); Mean Platelet Volume 10.3 fL (7.4-10.4); Platelet Count 328 10^3/uL (130-400); Red Blood Cell Count 3.22 10^6/uL (4.70-6.10); Red Cell Dist. Width 13.2 % (11.5-14.5); White Blood Cell Count 10.1 10^3/uL (4.8-10.8)
--- NOTE | 2023-05-14 08:19 | W.PN.HOSP.TC ---
Today's Communication/Plan
-
After communication with GI will be kept n.p.o. this morning for further evaluation
Continue IV PPI
Hemodynamically stable
Can discontinue IV fluids
Assessment / Plan
Assessment / Plan
#Syncope secondary to upper GI bleed
#Acute blood loss anemia likely secondary upper GI bleed
#Sinus tachycardia secondary to above-almost resolved
Start PPI bolus with IV infusion
Tolerating diet and liquids-hold IVF.
Gastroenterology has been consulted
s/p Emergent EGD with DU with visible vessel s/p epi injection s/p clips.
Hgb 9.5 s/p 2U PRBC >> 9.0>> 9.4 after up to 10.3 first unit yesterday had to abort second unit due to suspected transfusion reaction/artifact on EKG
Anemia workup noted
Diet per GI>> will again be kept n.p.o. this morning until seen by GI
BP has remained stable.
CT abd/pelvis -Clips in the duodenal bulb related to treatment for a duodenal ulcer. Mild wall thickening at the level of the duodenal bulb, but no CT evidence for perforation or abscess formation. No other acute inflammatory process in the abdomen
or pelvis. For repeat relook EGD on May 12 showed a small flat red spot that was gold probe recommendation was for no 24 hours of PPI IV then transition to oral
2 IV lines at all times
Trend CBC for now. Recheck in a.m.
#Leukocytosis likely reactive
trend for now. repeat CBC later today.
afebrile
no cough or fever.
UA negative
CT abd/pelvis noted
CXR negative for infiltrate
# Suspected transfusion reaction
-Second unit of packed red blood cells was reported due to perceived tachycardia now after review of rhythm strips felt to be artifact
-Patient remained asymptomatic throughout
= Transfusion reaction labs were all within normal limits
= Doubt had transfusion reaction
#Mood disorder
restart lexapro
#Chronic back pain
Tylenol prn
No NSAIDs
#Mild AST elevation
monitor
DVT ppx-ambulate. Avoid chemical ppx in setting GIB. SCds
Anticipated Discharge: Within 24 hours
Subjective/Interval History
-
Date of Service: May 14, 2023
No documented obvious bleeding overnight has remained asymptomatic without complaints of lightheadedness abdominal pain tolerated regular diet overnight. No evidence of transfusion reaction no cardiac events.
Objective Data
-
Labs:
Laboratory Results
05/14/23
05:42
WBC 10.1
Hgb 9.4 L
Hct 27.1 L
Plt Count 328
Vital Signs:
Vital Signs
Temp Pulse Resp BP Pulse Ox
98.1 F 95 16 142/91 97
05/14/23 07:00 05/14/23 07:00 05/14/23 07:00 05/14/23 07:00 05/14/23 07:00
I&O
05/13/23 05/14/23 05/15/23
06:59 06:59 06:59
Intake Total 580 / 580 2580 / 2580
Output Total 1650 / 1650 1225 / 1225
Balance -1070 / -1070 1355 / 1355
Review of Systems
-
History Source: Patient and Family
Constitutional: Reports No Symptoms
Respiratory: Reports No Symptoms
Cardiac: Reports No Symptoms
Abdomen/GI: Reports No Symptoms
Physical Exam
-
General: Well Developed
HEENT: Normocephalic
Respiratory: Clear to Auscultation
Cardiac: Regular Rhythm
GI: Soft, Nontender and Nondistended
Musculoskeletal: No Cyanosis and No Edema
Skin: Warm
Neuro: Awake, Alert and Oriented
Psych: Calm
Data Reviewed
-
Total Time Spent with Patient (in minutes): 56
Labs: Labs Reviewed by me (Transfusion reaction labs all within normal limits/hemoglobin down to 9.4 from 10.3 last night)
[2023-05-14] MEDS: PROTONIX 100 IV ×2 (09:40→20:04)
--- NOTE | 2023-05-14 13:46 | W.PN.UPDATE ---
Update Note
Progress Note Update
Hemoglobin slightly dropped again today despite 2 units of packed red blood cells yesterday, he has not had any melena since Saturday but hemoglobin continues to trend down he did have repeat EGD yesterday with cautery discussed with patient and mom
will repeat endoscopy today to see if he needs an Ovesco clip placement with Dr. Christine
[2023-05-14] MEDS: LEXAPRO PO (15:20)
[2023-05-14] MEDS: VITAMIN D3 (cholecalciferol) PO (17:42)
[2023-05-14] MEDS: THERAGRAN PO (17:42)
--- NOTE | 2023-05-14 18:47 | PTCARENOTE ---
PCT transported patient to GI lab w/ PPI infusing.
--- NOTE | 2023-05-14 19:37 | SUR.PHASEI ---
sleeping - difficult to arouse, vss, color pink, denies pain. Dr Christine to visit.
--- NOTE | 2023-05-14 20:19 | PTCARENOTE ---
Patient arrived from GI lab with Nurse. Report given over the phone and bedside. Patient was able to walk into room with assist. Tolerating clear liquids.
[2023-05-15 03:15] VITALS: BP 137/68
[2023-05-15] MEDS: PROTONIX 100 IV (05:55)
[2023-05-15 07:33] VITALS: BP 129/85
--- NOTE | 2023-05-15 08:39 | W.PN.HOSP.TC ---
Today's Communication/Plan
-
Will keep on PPI infusion until tomorrow morning and then transition to oral PPI twice daily
Tolerating diet
Out of bed and ambulate
Assessment / Plan
Assessment / Plan
#Syncope secondary to upper GI bleed
#Acute blood loss anemia likely secondary upper GI bleed
#Sinus tachycardia secondary to above-almost resolved
Start PPI bolus with IV infusion
Tolerating diet and liquids-hold IVF.
Gastroenterology has been consulted
s/p Emergent EGD with DU with visible vessel s/p epi injection s/p clips. Second relook EGD noted flat red spot treated with gold probe/ 05/12
Hgb 9.5 s/p 2U PRBC >> 9.0>> 9.4 after up to 10.3 first unit yesterday had to abort second unit due to suspected transfusion reaction/artifact on EKG
Underwent a third look EGD noting no active bleeding on 05/13/plan will be to keep on PPI infusion for a period of 72 hours after last intervention EGD which was on 12 May
BP has remained stable.
CT abd/pelvis -Clips in the duodenal bulb related to treatment for a duodenal ulcer. Mild wall thickening at the level of the duodenal bulb, but no CT evidence for perforation or abscess formation. No other acute inflammatory process in the abdomen
or pelvis. relook EGD on May 12 showed a small flat red spot that was gold probe recommendation per Dr. Christine after third look EGD finding no active bleeding is PPI infusion for 72 hours after last intervention which would have been May 12
2 IV lines at all times
Trend CBC for now. Recheck in a.m.
#Leukocytosis likely reactive
trend for now. repeat CBC later today.
afebrile
no cough or fever.
UA negative
CT abd/pelvis noted
CXR negative for infiltrate
# Suspected transfusion reaction
-Second unit of packed red blood cells was reported due to perceived tachycardia now after review of rhythm strips felt to be artifact
-Patient remained asymptomatic throughout
= Transfusion reaction labs were all within normal limits
= Doubt had transfusion reaction
#Mood disorder
restart lexapro
#Chronic back pain
Tylenol prn
No NSAIDs
#Mild AST elevation
monitor
DVT ppx-ambulate. Avoid chemical ppx in setting GIB. SCds
Anticipated Discharge: Within 24 hours
Subjective/Interval History
-
Date of Service: May 15, 2023
Doing well without complaints denies any lightheadedness denies any chest pain denies any shortness of breath is been no passage of obvious blood per rectum or melena. Tolerating diet.
Objective Data
-
Labs:
Laboratory Results
05/15/23
07:41
WBC Pending
Hgb Pending
Hct Pending
Plt Count Pending
Vital Signs:
Vital Signs
Temp Pulse Resp BP Pulse Ox
98.4 F 87 17 129/85 98
05/15/23 07:33 05/15/23 07:33 05/15/23 07:33 05/15/23 07:33 05/15/23 07:33
I&O
05/14/23 05/15/23 05/16/23
06:59 06:59 06:59
Intake Total 2580 / 2580 420 / 420
Output Total 1225 / 1225 1500 / 1500
Balance 1355 / 1355 -1080 / -1080
Review of Systems
-
History Source: Patient and Family
Constitutional: Reports No Symptoms
Respiratory: Reports No Symptoms
Cardiac: Reports No Symptoms
Abdomen/GI: Reports No Symptoms
Physical Exam
-
General: Well Developed
HEENT: Normocephalic
Respiratory: Clear to Auscultation
Cardiac: Regular Rhythm
GI: Soft, Nontender and Nondistended
Psych: Calm
Data Reviewed
-
Total Time Spent with Patient (in minutes): 56
Medical Tests (Nuc Med, Echo etc): Report Reviewed by me (Reviewed latest relook EGD that found no evidence of any active bleeding)
Labs: Labs Reviewed by me (Today's H&H pending)
[2023-05-15] MEDS: LEXAPRO 10 MG PO (09:17)
[2023-05-15 09:38] LABS: Hematocrit 29.2 % (39.0-52.0); Hemoglobin 10.2 g/dL (13.0-18.0); Mean Corp Hgb Conc. 34.9 g/dL (33.0-37.0); Mean Corpuscular Hgb 29.7 pg (27.0-31.0); Mean Corpuscular Volume 85.1 fL (80.0-94.0); Mean Platelet Volume 10.2 fL (7.4-10.4); Platelet Count 363 10^3/uL (130-400); Red Blood Cell Count 3.43 10^6/uL (4.70-6.10); Red Cell Dist. Width 13.6 % (11.5-14.5); White Blood Cell Count 8.9 10^3/uL (4.8-10.8)
--- NOTE | 2023-05-15 09:58 | W.PN.GI.CBS2 ---
Today's Communication / Plan
-
pt feeling improved tolerating breakfast
last stool 3/
transition to PPI BID reviewed to take 1/2 hour prior to meals
follow up 3-4 weeks in office to review for repeat EGD in 8 weeks
message sent to office to arrange follow up
left slip for repeat H/h 1-2 week
STRESSED no further NSAIDs-- follow up with PCP to review for back pain
hold on work til follow up no driving for 2 weeks
reviewed hold iron for 1 week as may make stools black and hbg stable 10.3 today
soft diet
ambulate in [place] before leaving to ensure stable
miralax PRN for any constipation
all questions answered and mother updated at bedside
Assessment / Plan
-
22 y/o man with massive UGIB from 05/09 EGD with DU with visible vessel. path neg H pylori. s/p 4 units PRBC's given. repeat EGD 05/13 with normal esophagus, stomach, non bleeding duodenal ulcer. 05/11 CXR with no acute process. CT A/p 05/11 Clips
in the duodenal bulb related to treatment for a duodenal ulcer. Mild wall thickening at the level of the duodenal bulb, but no CT evidence for perforation or abscess formation. No other acute inflammatory process in the abdomen or pelvis.
-large DU with visible vessel
PLAN:
pt feeling improved tolerating breakfast
last stool 3
transition to PPI BID reviewed to take 1/2 hour prior to meals
follow up 3-4 weeks in office to review for repeat EGD in 8 weeks
message sent to office to arrange follow up
left slip for repeat H/h 1-2 week
STRESSED no further NSAIDs-- follow up with PCP to review for back pain
hold on work til follow up no driving for 2 weeks
reviewed hold iron for 1 week as may make stools black and hbg stable 10.3 today
soft diet
ambulate in [place] before leaving to ensure stable
miralax PRN for any constipation
all questions answered
Subjective
Subjective
Date of Service: May 15, 2023
3 black tarry stool, on regular diet
Objective
Data Reviewed
Laboratory Data:
Laboratory Results
05/13/23 16:59
Laboratory Results
PT 14.2 Sec (11.4-14.6) 05/10/23 22:20
INR 1.10 05/10/23 22:20
APTT 24.3 Sec (23.4-35.0) 05/10/23 22:20
Phosphorus 4.7 mg/dl (2.5-4.5) H 05/13/23 05:45
Magnesium 2.1 mg/dl (1.6-2.3) 05/13/23 16:59
Total Bilirubin 0.7 mg/dl (0.2-1.3) 05/12/23 05:23
AST 29 U/L (17-59) 05/12/23 05:23
ALT 45 U/L (0-50) 05/12/23 05:23
Alkaline Phosphatase 72 U/L (38-126) 05/12/23 05:23
Vital Signs and I&O:
Vital Signs
Temp Pulse Resp BP Pulse Ox
98.4 F 87 17 129/85 98
05/15/23 07:33 05/15/23 07:33 05/15/23 07:33 05/15/23 07:33 05/15/23 07:33
I&O
05/14/23 05/15/23 05/16/23
06:59 06:59 06:59
Intake Total 2580 / 2580 420 / 420
Output Total 1225 / 1225 1500 / 1500
Balance 1355 / 1355 -1080 / -1080
Physical Exam
Physical Exam
HEENT: Anicteric and Moist mucous membranes
Cardiology: Normal Sinus Rhythm
Pulmonary: Clear
GI: Soft, Non Distended and Non Tender
Extremities: No Edema
Neuro: Non Focal
[2023-05-15 10:44] VITALS: BP 156/94
--- NOTE | 2023-05-15 10:53 | W.PN.UPDATE ---
Update Note
Progress Note Update
pt with some dizziness and tachycardia with walking. Reviewed with patient, mother and Dr. Colvin. will rewalk in 2 hours if feeling improved stable for discharge. Likely tachycardia from blood loss during admission with bleeding. No signs of
active bleeding at this time.
[2023-05-15 12:00] VITALS: BP 136/96; BP 147/94; BP 152/95; PULSE 104; PULSE 84; PULSE 86
--- NOTE | 2023-05-15 12:00 | CM ---
laboratory manager met with pt and mother at bedside
For d/c today
Mother will transport
Plan - d/c to home no needs
[2023-05-15 13:00] VITALS: BP 152/99
[2023-05-15 13:09] VITALS: BP 159/98
--- NOTE | 2023-05-15 13:24 | W.DCSUMMARY ---
Discharge Summary
Discharge Data
Date of Admission: 05/10/23
Date of Discharge: 05/15/23
-
Pending Results: No
Hospital Course
22-year-old male past medical history of chronic back pain who has been taking increasing amount of NSAIDs at home.� Patient stating of no nausea vomiting.� States of black diarrhea.� States he is feeling severe lightheaded and dizzy upon standing
up.� Denies any blood in the urine.� Denies abdominal pain.� Patient denies any chest pain or palpitation or shortness of breath.� Patient presented with syncopal event.� Patient presented by EMS. Presentation was that of acute blood loss anemia in
relation to presumptive upper GI bleed he was admitted to the ICU 2 IV lines were inserted with type and cross ordered and transfusion for hemoglobin less than 8. He was placed on a PPI infusion. And GI was consulted activity assistant consulted .
Patient underwent subsequent urgent endoscopic
Noting normal esophagus normal stomach with a duodenal ulcer with a visible vessel that was injected and clips placed he was returned to the ICU on a PPI drip and kept n.p.o. subsequent blood loss anemia requiring 2 units of packed red blood cells
which were infused without issue
With a increase in hemoglobin to 9.6/has a subsequent low preload EGD noted a flat red spot that underwent gold probe on further units of packed red blood cells were ordered after the first unit was infused and on the second unit being
given the patient had a suspected transfusion reaction but only manifested as a tacky arrhythmia on the monitor which by further review by cardiology nancy was felt to be artifact. He underwent a transfusion reaction protocol with blood work not
indicating any definitive transfusion reaction as there is no evidence of any hemolysis. The patient remained asymptomatic throughout the entire length of that event. He underwent a relook EGD on third occasion this time showing no evidence of any
active bleeding and was kept on a PPI infusion for period of 72 hours after his intervention. He was mildly orthostatic and tachycardic on the date of his discharge while awaiting his H&H which came back at 10.3 he will be placed on a PPI twice
daily and plan is for follow-up in 3 to 4 weeks with the GI service with a repeat H&H in 1 to 2 weeks. He has been advised to absolutely avoid any NSAID therapy in the future along with aspirin therapy. He is not to return to his work related
activities until seen by GI. He will be given a note by the GI service in that regard. He has been advised once he starts iron supplementation this may turn the stool black.
Discharge Plan
-
Patient Disposition: Home (Routine Discharge)
Discharge Diagnosis/Procedures: Bleeding duodenal ulcer
Acute blood loss anemia
Diet: Regular
Additional Diets: soft foods as tolerated
Activity: As tolerated
Additional Activity: no driving next 2 weeks /no work related activities till seen by GI and follow-up
Driving Restrictions: As prior to admission
Blood Work: H/H 1-2 weeks see slip on chart, hold iron til repeat hemoglobin. If iron started will make stools black in color.
Wound Care: return to ER for any recurrent bleeding, dizziness or problems. AVOID ALL NSAIDS-- ALEVE, MOTRIN, ADVIL, ETC. follow up with PCP to discuss back pain management.
Referrals:
Veronica Elias MD [Active] - (follow up 3-[address] Elias and [employer])
Vielka Marin MD [Family Provider] -
Prescriptions:
New
pantoprazole [Protonix] 40 mg tablet,delayed release (DR/EC)
40 mg PO BID Qty: 60 0RF
Continued
therapeutic multivitamin Tablet
1 tab PO QPM
escitalopram oxalate [Lexapro] 10 mg Tablet
10 mg PO DAILY
acetylcysteine [NAC] 600 mg Capsule
600 mg PO QPM
cholecalciferol (vitamin D3) [Vitamin D3] 50 mcg (2,000 unit) Tablet
1,000 mcg PO QPM
Discontinued
cyclobenzaprine [Flexeril] 5 mg Tablet
5 mg PO BIDPRN PRN (Reason: back spasms)
Excedrin Back and Body 250-250 mg Tablet
1 tab PO BIDPRN PRN (Reason: mild pain)
Discharge Orders:
Discharge Patient (As Directed); Ordered 05/15/23
Ordered By: Cirilo Colvin
== END 2023-05-15 14:25 | disposition home or self-care (01) | DRG 378 ==
LOC: 3 WEST ACU 18:42
PROVIDERS: Clinical Nurse Specialist Family Health; Emergency Medicine; Internal Medicine Gastroenterology; ADMITTING PHYSICIAN Hospitalist; ATTENDING PHYSICIAN Internal Medicine; CONSULT PHYSICIAN Internal Medicine; CONSULT PHYSICIAN Internal Medicine Critical Care Medicine; EMERGENCY PHYSICIAN Emergency Medicine; FAMILY PHYSICIAN Family Medicine
PROC: 0DJ08ZZ Inspection of Upper Intestinal Tract, Via Natural or Artificial Opening Endoscopic (ICD-10-PCS; 2023-05-10)
PROC: 3E0G8GC Introduction of Other Therapeutic Substance into Upper GI, Via Natural or Artificial Opening Endoscopic (ICD-10-PCS; 2023-05-10)
PROC: 30233N1 Transfusion of Nonautologous Red Blood Cells into Peripheral Vein, Percutaneous Approach (ICD-10-PCS; 2023-05-11)
PROC: 0DB68ZX Excision of Stomach, Via Natural or Artificial Opening Endoscopic, Diagnostic (ICD-10-PCS; 2023-05-13)
DX: K26.0 Acute duodenal ulcer with hemorrhage (principal); D62 Acute posthemorrhagic anemia; I47.19 Other supraventricular tachycardia; R55 Syncope and collapse; K26.4 Chronic or unspecified duodenal ulcer with hemorrhage; M54.50 Low back pain, unspecified; F32.A Depression, unspecified; G89.29 Other chronic pain; R73.02 Impaired glucose tolerance (oral); D72.829 Elevated white blood cell count, unspecified; F41.9 Anxiety disorder, unspecified; T80.89XA Other complications following infusion, transfusion and therapeutic injection, initial encounter; Z82.49 Family history of ischemic heart disease and other diseases of the circulatory system
CPT/HCPCS: 71045; 74177; 80048; 80053; 81003; 82043; 82607; 82728; 82746; 82962; 83036; 83540; 83550; 83735; 84100; 85014; 85018; 85025; 85027; 85610; 85730; 86078; 86850; 86900; 86901; 86920; 88342; 93005; 96365; 96366; 97163; 97166; 97530; 99291; P9016; Q9967

== ENCOUNTER → 2023-07-09 06:11 | Day surgery (SDC) | payer OTHER, SELFPAY | LOC: GI 06:11 | PROVIDERS: ATTENDING PHYSICIAN Internal Medicine; FAMILY PHYSICIAN Family Medicine | DX: K31.89 Other diseases of stomach and duodenum (principal); Z87.11 Personal history of peptic ulcer disease | CPT/HCPCS: 43239; 88305; 88342 ==